=== PATIENT | female | born 1975 | race Caucasian/White ===

== ENCOUNTER → 2016-04-28 | Outpatient (CLI) | payer BC ==
[~2016-04-28] MED LIST: BENA25TA3 PO; CIPR-9 PO; FLUT1SPR5 EACH NARE; MELA5TAB15 PO
[2016-04-28 11:34] LABS: AUTOMATED NEUTROPHIL # 4.2 TH/MM3 (1.8-7.7); BASOPHIL % 0.6 % (0.0-2.0); EOSINOPHIL # 0.3 TH/MM3 (0-0.4); EOSINOPHIL % 5.1 % (0.0-4.0); HEMATOCRIT 37.2 % (35.0-46.0); HEMO FLAGS DIFF FINAL; LYMPHOCYTE # 1.6 TH/MM3 (1.0-4.8); MEAN CELL VOLUME 89.3 FL (80.0-100.0); MEAN CORPUSCULAR HGB CONC 33.6 % (32.0-36.0); MONO % 8.6 % (0.0-8.0); NEUT % 61.7 % (16.0-70.0); PLATELET COUNT 180 TH/MM3 (150-450); RED BLOOD COUNT 4.17 MIL/MM3 (4.00-5.30); RED CELL DISTRIBUTION WIDTH 13.9 % (11.6-17.2); WHITE BLOOD COUNT 6.7 TH/MM3 (4.0-11.0)
[2016-04-28 11:37] LABS: BACTERIA, URINE RARE /hpf; BLOOD, URINE NEG (NEG); GLUCOSE,URINE NEG (NEG); KETONE, URINE NEG (NEG); NITRITE,URINE NEG (NEG); PH, URINE 6.5 (5.0-8.5); SQUAMOUS EPITHELIAL CELL URINE 1 /hpf (0-5); URINE COLOR YELLOW (YELLW/STRAW)
[2016-04-28 11:58] LABS: ANION GAP 7 MEQ/L (5-15); BLOOD UREA NITROGEN 15 MG/DL (7-18); CHLORIDE 105 MEQ/L (98-107); GLOMERULAR FILTRATION RATE 75 ML/MIN (>89); GLUCOSE,FASTING 92 MG/DL (74-99); POTASSIUM 4.2 MEQ/L (3.5-5.1); SODIUM (NA) 140 MEQ/L (136-145)
[2016-04-28 12:07] LABS: BHCG SCREEN QUALITATIVE LESS THAN 1 MIU/ML (0-5)
== END ==
LOC: CPRE 10:50
PROVIDERS: ATTEND Obstetrics & Gynecology
DX: Z01.812 Encounter for preprocedural laboratory examination (principal); R10.2 Pelvic and perineal pain
CPT/HCPCS: 36415; 80048; 81001; 84703; 85025

== ENCOUNTER → 2016-05-07 | Day surgery (SDC) | payer BC ==
[~2016-05-07] VITALS: Ht 162.6 cm; Wt 60.3 kg
[~2016-05-07] MED LIST changes: +ACETAMINOPHEN 1000 MG/100 ML VIAL IV ONE; +ARTIFICIAL TEARS OPTH OINT 3.5 APPLIC/3.5 GM TUBO ONE; +BUPIVACAINE HCL PF 0.25% 30 ML VIAL ONE; +DEXAMETHASONE SOD PHOS 4 MG/ML VIAL ONE; +DICLOFENAC SODIUM 37.5 MG/ML VIAL IV PUSH ONE; +DO NOT ADM ANY ANTICOAGULANT DRUGS XX PRN; +FAMOTIDINE 20 MG/2 ML VIAL ONE; +HYDROmorphone HCL PF 1 MG/ML VIAL IVP PRN; +HYDROmorphone HCL PF 2 MG/ML VIAL ONE; +IBUPROFEN 600 MG TAB PO PRN; +INSULIN HUMAN REGULAR 1,000 UNITS/10 ML VIAL SQ PRN; +KETOROLAC TROMETHAMINE 30 MG/ML (IVP) VIAL IVP PRN; +LACTATED RINGER'S 1000 ML INJ 1,000 ML IV SCH; +LACTATED RINGER'S 1000 ML IV SCH; +LORazepam 0.5 MG TAB PO PRN; +METOPROLOL TARTRATE 25 MG TAB PO PRN; +MIDAZOLAM HCL 2 MG/2 ML VIAL ONE; +NEOSTIGMINE 3 MG/3 ML SYR IV ONE; +NORMOSOL R INJ 1,000 ML IV ONE; +ONDANSETRON HCL 4 MG/2 ML VIAL IV PUSH ONE; +ONDANSETRON HCL 4 MG/2 ML VIAL IVP PRN; +PHENYLEPH/NS 1000 MCG/10 ML SYR IV ONE; +PROMETHAZINE INJ 25 MG/ML VIAL IM PRN; +PROPOFOL 200 MG/20 ML AMP IV ONE; +SODIUM CHLORID 0.9% 500 ML IV SCH; +SODIUM CHLORIDE 0.9% FLUSH 5 ML FLUSH FLUSH PRN; +SODIUM CHLORIDE 0.9% FLUSH 5 ML FLUSH FLUSH SCH; +SUGAMMADEX SODIUM 200 MG/2 ML VIAL IV PUSH ONE; +ceFAZolin 2 GM PREMIX 50 ML IV SCH; +diphenhydrAMINE HCL 25 MG CAP PO PRN; +ePHEDrine/NS 25 MG/5 ML SYR IV ONE; +fentaNYL CITRATE 250 MCG/5 ML AMP ONE; +oxyCODONE/ACETAMINOPHEN 5 MG/325 MG TAB PO PRN
[2016-05-07 06:22] VITALS: BP 101/57; PULSE 68; RESP 16; TEMP 98.4; O2SAT 100
[2016-05-07] MEDS: APREPITANT 40 MG CAP PO SCH ×2 (06:50→07:00)
[2016-05-07 12:45] VITALS: RESP 16; TEMP 97
[2016-05-07 13:45] VITALS: BP 102/54; PULSE 80; O2SAT 99
--- NOTE | 2016-05-08 12:54 | MP ---
cc: CÉSAR SANDOVAL M.D., KATHLEEN B. M.D. DATE OF SURGERY: 05/07/2016 PREOPERATIVE DIAGNOSIS Patient with a history of breast cancer, history of BRCA gene mutation. PROCEDURE Exam under anesthesia, total laparoscopic hysterectomy, bilateral salpingo-oophorectomy, lysis of adhesions, robotic-assisted. POSTOPERATIVE DIAGNOSIS Patient with a history of breast cancer, history of BRCA gene mutation. SURGEON Dr. Sandoval. ANESTHESIA General with endotracheal intubation. ESTIMATED BLOOD LOSS 50 ccs. DRAINS Marvin to gravity. SURGICAL SPECIMEN Uterus, fallopian tubes, ovaries and cervix. INDICATION FOR PROCEDURE Patient with a history of breast cancer, genetic evaluation documented. The patient carried mutation of the BRCA gene. After discussing her options recommendation was to proceed with total hysterectomy, bilateral salpingo-oophorectomy. Preop the patient received Ancef 2 grams prophylactically. DESCRIPTION OF PROCEDURE The patient was taken to the operating room in stable condition and underwent general anesthesia with endotracheal intubation. She was carefully positioned in dorsolithotomy position using Reid stirrups on the lower extremities with sequentials placed on lower extremities for VTE prophylaxis. She was carefully padded appropriately and positioned. She was prepped and draped and a time-out was conducted and agreed by all present in the room. Marvin catheter was then inserted by sterile technique draining clear urine. The cervix was easily visualized with a bivalve retractor. A small V-Care device was selected. The V-Care was inserted without complication and then the retractor was removed. Gloves were changed. The abdomen was examined. Previous Pfannenstiel scar was noted and it was well-healed. The umbilical port site was utilized first, 0.25% plain Marcaine was injected, approximately 3 ccs. A small elliptical incision was made infraumbilical allowing placement of a 5-mm visible port trocar directly into the peritoneal cavity without complication. Insufflation at low pressure was made and the patient was placed in Trendelenburg positioning. Accessory ports were placed on the right and left using 8 mm trocars. Visualization of the pelvic anatomy revealed significant adhesions from the anterior uterine surface down to the dome of the bladder presumably from her previous section. The umbilical port was then traded to a 12 mm camera port. The [employer] patient cart was side docked and #2 arm on the left side was attached with monopolar scissor, the #1 arm on the right was attached with a fenestrated bipolar grasper. No collisions were noted. Good articulation was noted. Attention was placed on the surgeon cart where good visualization was noted. Anatomic review of the pelvis was made. Upper quadrants were easily visualized previously without any pathology evident. The significant adhesion involving the anterior abdominal wall, the dome of the bladder and the uterus were taken down by combination of delicate sharp dissection with the use of both cold and hot scissors. The bladder was back-filled appropriately to delineate its margins. There is no complication with the bladder, after dissection of the anterior adhesion, down to the vaginal cuff, the bladder was decompressed of the sterile saline that was utilized, approximately 400 ccs was placed. Continuation of the dissection allowed dissection and separation of the round ligament, retroperitoneal space was entered and opened. The ureters were easily visualized bilaterally, well out of the operative field. The infundibular pelvic vessels were skeletonized, ligated hemostatically and then the uterine artery and vein were skeletonized and ligated hemostatically. This allowed visualization of the vaginal cuff and a colpotomy incision was made circumferentially to remove the cervix intact with the uterus. This was brought through the vaginal opening by the secretary administrative assistant. A #1 Stratafix suture was then utilized to close the vaginal cuff. The closure was started in the midline, extended laterally incorporating the angles of the cuff with good result. No hematoma, no active bleeding was noted. The suture was trimmed at the level of the peritoneum and the suture needles were secured to be removed. Good hemostasis again was noted. Both ureters were easily traced and visualized peristalsing normally through the pelvic sidewall and the bladder was draining clear urine throughout the procedure. After completion of the robotic portion of the procedure the patient cart was undocked. Straight laparoscopy was reintroduced. The suture needles were retrieved and removed. Full count was made and correct. Pelvis was irrigated with normal saline and removed. Observation of the operative site off pressure revealed no hematoma or oozing. After confirmation of hemostasis off pressure, re-insufflation of the pneumoperitoneum was made. The umbilical port was closed with a crossbow device with a #1 Vicryl suture with good result. The pneumoperitoneum was then decompressed completely. The trocars were removed intact. Subcuticular stitch of 4-0 Monocryl was used to close all skin incisions with Steri-Strips applied over the top. Examination of the vaginal vault was intact, there was no bleeding at the cuff. The cuff was intact. Integrity was tested with a sponge stick by the secretary administrative assistant previously, observing this with pressure, good integrity of the closure was noted. At the completion of the case the patient was taken off anesthesia, extubated and then brought to the recovery room on room air. Final count was correct. MD COBY Valdez/TLL /10:32 AM /12:29 PM
== END | disposition home or self-care (01) ==
LOC: HSDC 05:46
PROVIDERS: ATTEND Obstetrics & Gynecology
DX: N92.0 Excessive and frequent menstruation with regular cycle (principal); N70.11 Chronic salpingitis; K66.0 Peritoneal adhesions (postprocedural) (postinfection); N88.8 Other specified noninflammatory disorders of cervix uteri; Z15.01 Genetic susceptibility to malignant neoplasm of breast; Z85.3 Personal history of malignant neoplasm of breast
CPT/HCPCS: 00840; 58552; 86850; 86900; 86901; 88307; J0131; J0690; J1100; J1130; J1170; J2250; J2370; J2405; J2710; J3010; J7120; J8501

== ENCOUNTER 2017-02-17 20:26 | Emergency (ER) | payer BC ==
[~2017-02-17] VITALS: Ht 162.6 cm; Wt 61.5 kg
[~2017-02-17 20:26] MED LIST changes: -ACETAMINOPHEN 1000 MG/100 ML VIAL IV ONE; -ARTIFICIAL TEARS OPTH OINT 3.5 APPLIC/3.5 GM TUBO ONE; -BUPIVACAINE HCL PF 0.25% 30 ML VIAL ONE; -DEXAMETHASONE SOD PHOS 4 MG/ML VIAL ONE; -DICLOFENAC SODIUM 37.5 MG/ML VIAL IV PUSH ONE; -DO NOT ADM ANY ANTICOAGULANT DRUGS XX PRN; -FAMOTIDINE 20 MG/2 ML VIAL ONE; -HYDROmorphone HCL PF 1 MG/ML VIAL IVP PRN; -HYDROmorphone HCL PF 2 MG/ML VIAL ONE; -IBUPROFEN 600 MG TAB PO PRN; -INSULIN HUMAN REGULAR 1,000 UNITS/10 ML VIAL SQ PRN; -KETOROLAC TROMETHAMINE 30 MG/ML (IVP) VIAL IVP PRN; -LACTATED RINGER'S 1000 ML INJ 1,000 ML IV SCH; -LACTATED RINGER'S 1000 ML IV SCH; -LORazepam 0.5 MG TAB PO PRN; +MELA5 PO; -MELA5TAB15 PO; -METOPROLOL TARTRATE 25 MG TAB PO PRN; -MIDAZOLAM HCL 2 MG/2 ML VIAL ONE; -NEOSTIGMINE 3 MG/3 ML SYR IV ONE; -NORMOSOL R INJ 1,000 ML IV ONE; -ONDANSETRON HCL 4 MG/2 ML VIAL IV PUSH ONE; -ONDANSETRON HCL 4 MG/2 ML VIAL IVP PRN; -PHENYLEPH/NS 1000 MCG/10 ML SYR IV ONE; -PROMETHAZINE INJ 25 MG/ML VIAL IM PRN; -PROPOFOL 200 MG/20 ML AMP IV ONE; -SODIUM CHLORID 0.9% 500 ML IV SCH; -SODIUM CHLORIDE 0.9% FLUSH 5 ML FLUSH FLUSH PRN; -SODIUM CHLORIDE 0.9% FLUSH 5 ML FLUSH FLUSH SCH; -SUGAMMADEX SODIUM 200 MG/2 ML VIAL IV PUSH ONE; -ceFAZolin 2 GM PREMIX 50 ML IV SCH; -diphenhydrAMINE HCL 25 MG CAP PO PRN; -ePHEDrine/NS 25 MG/5 ML SYR IV ONE; -fentaNYL CITRATE 250 MCG/5 ML AMP ONE; -oxyCODONE/ACETAMINOPHEN 5 MG/325 MG TAB PO PRN
[2017-02-17 20:47] VITALS: BP 114/65; PULSE 93; RESP 16; TEMP 98.9; O2SAT 100
--- NOTE | 2017-02-17 21:26 | PD ---
HPI Chief Complaint: Pain: Acute or Chronic Time Seen by Provider: 20:59 Travel History International Travel<30 days: No Contact w/Intl Traveler<30days: No Traveled to known affect area: No History of Present Illness HPI This is a 41-year-old female who presents to the emergency department with pain in her right breast, constant, moderate severity that's been going on for 4 days associated with swelling today. She feels like her entire breast has dropped some. Patient has a history of breast cancer and in [address] Soto. She's never had a problem like this before.. She denies any fevers or chills. PFSH Past Medical History Cancer: Yes (BREAST CANCER) Cardiovascular Problems: No Diabetes: No Patient Takes Glucophage: No Endocrine: No Genitourinary: No Hepatitis: No Hiatal Hernia: No Immune Disorder: No Musculoskeletal: No Neurologic: No Psychiatric: No Reproductive: No Respiratory: No Thyroid Disease: No Tetanus Vaccination: > 5 Years Influenza Vaccination: No ?: Not Past Surgical History Abdominal Surgery: Yes (LIPOSUCTION FOR RECONSTRUCTION) AICD: No Body Medical Devices: BREAST IMPLANTS Cardiac Surgery: No Ear Surgery: No Endocrine Surgery: No Eye Surgery: Yes (LASIK) Genitourinary Surgery: No Gynecologic Surgery: Yes (C SECTION) Hysterectomy: Yes (2017) Joint Replacement: No Mastectomy: Yes (BILATERAL 2005) Oral Surgery: No Pacemaker: No Thoracic Surgery: Yes (BILATERAL MASTECTOMY WITH RECONSTRUCTION, IMPLANTED PORT AND REMOVAL PORT) Other Surgery: Yes Social History Alcohol Use: Yes (BEER EVERYDAY) Tobacco Use: No Substance Use: No Allergies-Medications (Allergen,Severity, Reaction): Coded Allergies: Sulfa (Sulfonamide Antibiotics) (Verified Allergy, Unknown, CHILD, ) Reported Meds & Prescriptions Reported Meds & Active Scripts Active Reported Cipro (Ciprofloxacin HCl) 500 Mg Tab 500 Mg PO BID Melatonin 5 Mg Tab 5 Mg PO HS Flonase Allergy Relief Nasal [employer] (Fluticasone Nasal [employer]) 50 Mcg/Act [employer] Unknown Dose EACH NARE DAILY PRN Benadryl Allergy (Diphenhydramine HCl) 25 Mg Tab 25 Mg PO HS Review of Systems Except as stated in HPI: all other systems reviewed are Neg Physical Exam Narrative GENERAL:Well appearing, no acute distress SKIN: Swelling of the right breast, focally tender on the inferior aspect of the right breast with some warmth but no erythema. HEAD: Atraumatic. Normocephalic. EYES: Pupils equal and round. No injection or drainage. ENT: Moist mucous membranes NECK: Trachea midline. CARDIOVASCULAR: Regular rate and rhythm. No murmur appreciated. RESPIRATORY: Clear to auscultation. Breath sounds equal bilaterally. GASTROINTESTINAL: Abdomen soft, non-tender, nondistended. MUSCULOSKELETAL: No obvious deformities. NEUROLOGICAL: Awake and alert. No obvious cranial nerve deficits. Moving all extremities. PSYCHIATRIC: Appropriate mood and affect; insight and judgment normal. Data Data Last Documented VS Vital Signs Date Time Temp Pulse Resp B/P (MAP) Pulse Ox O2 Delivery O2 Flow Rate FiO2 02/17/17 20:47 98.9 93 16 114/65 (81) 100 Orders Orders Complete Blood Count With Diff (02/17/17 21:09) Comprehensive Metabolic Panel (02/17/17 21:09) ^ Insert Iv (02/17/17 21:09) Ct Thorax/ Chest W Iv Contrast (02/17/17 ) Iohexol 350 Inj (Omnipaque 350 Inj) (02/17/17 21:55) Ceftriaxone Inj (Rocephin Inj) (02/17/17 22:30) Labs Laboratory Tests Test 02/17/17 21:30 White Blood Count 8.7 TH/MM3 Red Blood Count 4.00 MIL/MM3 Hemoglobin 11.8 GM/DL Hematocrit 35.7 % Mean Corpuscular Volume 89.3 FL Mean Corpuscular Hemoglobin 29.4 PG Mean Corpuscular Hemoglobin Concent 32.9 % Red Cell Distribution Width 12.8 % Platelet Count 198 TH/MM3 Mean Platelet Volume 8.2 FL Neutrophils (%) (Auto) 69.0 % Lymphocytes (%) (Auto) 17.5 % Monocytes (%) (Auto) 5.4 % Eosinophils (%) (Auto) 7.4 % Basophils (%) (Auto) 0.7 % Neutrophils # (Auto) 6.0 TH/MM3 Lymphocytes # (Auto) 1.5 TH/MM3 Monocytes # (Auto) 0.5 TH/MM3 Eosinophils # (Auto) 0.6 TH/MM3 Basophils # (Auto) 0.1 TH/MM3 CBC Comment DIFF FINAL Differential Comment Blood Urea Nitrogen 12 MG/DL Creatinine 0.80 MG/DL Random Glucose 119 MG/DL Total Protein 7.2 GM/DL Albumin 3.9 GM/DL Calcium Level 8.6 MG/DL Alkaline Phosphatase 48 U/L Aspartate Amino Transf (AST/SGOT) 12 U/L Alanine Aminotransferase (ALT/SGPT) 21 U/L Total Bilirubin 0.2 MG/DL Sodium Level 139 MEQ/L Potassium Level 3.8 MEQ/L Chloride Level 104 MEQ/L Carbon Dioxide Level 27.9 MEQ/L Anion Gap 7 MEQ/L Estimat Glomerular Filtration Rate 78 ML/MIN MDM Medical Decision Making Medical Screen Exam Complete: Yes Emergency Medical Condition: Yes Interpretation(s) Afebrile, mild tachycardia, normotensive No leukocytosis Last [address] 02/17/17 0000 Signed Impressions: Service Date/Time: Friday, February 17, 2017 21:41 - CONCLUSION: Fluid or inflammatory changes around the right breast implant, predominately laterally. No acute findings within the thorax. Vladimir Farley MD Differential Diagnosis Infection, leaking implant, abscess Narrative Course This Is a 41-year-old female who has a breast implant on the right side with increasing warmth, swelling and pain of her right breast. CT demonstrates some fluid around the right implant. She has no leukocytosis and she is afebrile. I spoke to Dr. Forrester who is the patient's plastic surgeon on the phone and he will see the patient in the office tomorrow morning and requested that I give her 1 dose of Rocephin here in the emergency department. Diagnosis Primary Impression: Disorder of breast implant Qualified Codes: T85.42XA - Displacement of breast prosthesis and implant, initial encounter Patient Instructions: General Instructions Additional Instructions: Follow up with Dr. Forrester without fail tomorrow morning. Med/Other Pt SpecificInfo: No Change to Meds Disposition: 01 DISCHARGE HOME Condition: Stable Lacy Tenorio MD Feb 17, 2017 21:26
[2017-02-17 21:39] LABS: BASOPHIL # 0.1 TH/MM3 (0-0.2); BASOPHIL % 0.7 % (0.0-2.0); EOSINOPHIL # 0.6 TH/MM3 (0-0.4); EOSINOPHIL % 7.4 % (0.0-4.0); HEMATOCRIT 35.7 % (35.0-46.0); HEMO FLAGS DIFF FINAL; LYMPH % 17.5 % (9.0-44.0); LYMPHOCYTE # 1.5 TH/MM3 (1.0-4.8); MEAN CELL VOLUME 89.3 FL (80.0-100.0); MEAN CORPUSCULAR HEMOGLOBIN 29.4 PG (27.0-34.0); MEAN CORPUSCULAR HGB CONC 32.9 % (32.0-36.0); MONO % 5.4 % (0.0-8.0); PLATELET COUNT 198 TH/MM3 (150-450); RED CELL DISTRIBUTION WIDTH 12.8 % (11.6-17.2); WHITE BLOOD COUNT 8.7 TH/MM3 (4.0-11.0)
[2017-02-17] MEDS ORDERED: IOHEXOL 350 MG/ML 10 ML VIAL (for RAD DIAG) IVCONTRAST ONE (21:55)
[2017-02-17 21:56] LABS: CHLORIDE 104 MEQ/L (98-107); POTASSIUM 3.8 MEQ/L (3.5-5.1); SODIUM (NA) 139 MEQ/L (136-145)
[2017-02-17 21:59] LABS: ANION GAP 7 MEQ/L (5-15); BICARBONATE 27.9 MEQ/L (21.0-32.0)
[2017-02-17 22:00] LABS: BLOOD UREA NITROGEN 12 MG/DL (7-18)
[2017-02-17 22:02] LABS: ALT (GPT) 21 U/L (10-53)
[2017-02-17 22:03] LABS: AST (GOT) 12 U/L (15-37); GLOMERULAR FILTRATION RATE 78 ML/MIN (>89)
[2017-02-17 22:04] LABS: TOTAL BILIRUBIN ADULT 0.2 MG/DL (0.2-1.0)
--- NOTE | 2017-02-17 22:04 | RADRPT ---
EXAM DATE/TIME: 02/17/2017 21:41 [facility] COMPARISON: No previous studies available for comparison. INDICATIONS : Right chest pain and swelling. IV CONTRAST: 75 cc Omnipaque 350 (iohexol) IV RADIATION DOSE: 6.26 CTDIvol (mGy) MEDICAL HISTORY : Carcinoma, breast. SURGICAL HISTORY : Mastectomy, bilateral. Hysterectomy. section. ENCOUNTER: Initial ACUITY: 4 - 6 days PAIN SCALE: 5/10 LOCATION: Right chest TECHNIQUE: Volumetric scanning of the chest was performed. Using automated exposure control and adjustment of t he mA and/or kV according to patient size, radiation dose was kept as low as reasonably achievable to obtain optimal diagnostic quality images. DICOM format image data is available electronically for review and comparison. Follow-up recommendations for detected pulmonary nodules are based at a minimum on nodule size and pa tient risk factors according to Fleischner Society Guidelines. FINDINGS: LUNGS: There is no consolidation or pneumothorax. No concerning pulmonary nodule is visualized. PLEURA: There is no pleural thickening or pleural effusion. MEDIASTINUM: The heart and great vessels demonstrate no acute abnormality. There is no mediastinal or hilar lymph adenopathy. AXILLAE: Within normal limits. No lymphadenopathy. SKELETAL: Within normal limits for patient age. Bilateral breast augmentation. There is some fluid around the r ight breast implant predominantly along the lateral aspect. MISCELLANEOUS: The visualized upper abdominal organs demonstrate no acute abnormality. CONCLUSION: Fluid or inflammatory changes around the right breast implant, predominately laterally. No acute find ings within the thorax. Vladimir Farley MD on February 17, 2017 at 21:58 Board Certified Radiologist. This report was verified electronically.
[2017-02-17 22:05] LABS: ALKALINE PHOSPHATASE 48 U/L (45-117)
[2017-02-17] MEDS ORDERED: cefTRIAXone INJ 1,000 MG in SODIUM CHLORIDE 0.9% INJ 100 ML IV ONE (22:30)
[2017-02-17 23:05] VITALS: BP 120/65; TEMP 98.8
== END 2017-02-17 23:19 | disposition home or self-care (01) ==
LOC: PHED 20:26
DX: N64.9 Disorder of breast, unspecified (principal); T85.49XA Other mechanical complication of breast prosthesis and implant, initial encounter; Z85.3 Personal history of malignant neoplasm of breast; Z98.82 Breast implant status; Z88.2 Allergy status to sulfonamides; Z79.899 Other long term (current) drug therapy
CPT/HCPCS: 71260; 80053; 85025; 96365; 99285; J0696; Q9967